=== PATIENT | male | born 1950 | race Caucasian/White ===

== ENCOUNTER → 2020-11-09 06:57 | Outpatient (CLI) | payer BC, SELFPAY ==
[2020-11-09 07:13] LABS: Basophils # 0.1 K/mm3 (0-0.2); Basophils % 0.9 % (0.1-2.0); Eosinophils # 0.2 K/mm3 (0.0-0.4); Eosinophils % 2.6 % (0.1-12.0); Hematocrit 43.7 % (42.0-52.0); Hemoglobin 14.8 g/dL (14.1-18.0); Lymphocytes % 15.3 % (10-50); Mean Corpuscular Hemoglobin 34.2 pg (27.0-31.2); Mean Corpuscular Volume 100.6 fl (80-94); Monocytes # 0.5 K/mm3 (0.1-1.0); Monocytes % 7.4 % (1.7-9.3); Neutrophils # 4.7 K/mm3 (1.8-7.8); Neutrophils % 73.8 % (37.0-80.0); Platelet Count 257 K/mm3 (142-424); Red Blood Count 4.34 M/mm3 (4.60-6.20); White Blood Count 6.4 K/mm3 (4.8-10.8)
[2020-11-09 07:52] LABS: Chloride 107 mmol/L (98-107); Sodium 141 mmol/L (136-145)
[2020-11-09 07:54] LABS: Blood Urea Nitrogen 19 mg/dl (9-20); Estimated Glomerular Filt Rate 60 ml/min (>60); GFR (African American) 73 ML/MIN (>60)
[2020-11-09 07:55] LABS: Alanine Aminotransferase 25 U/L (12-78); Albumin Level 4.4 g/dl (3.5-5.0); Albumin/Globulin Ratio 1.6 (1.1-1.8); Alkaline Phosphatase 93 U/L (38-126); Aspartate Amino Transferase 27 U/L (17-59); Bilirubin,Total 0.6 mg/dl (0.2-1.3); Carbon Dioxide 29 mmol/L (22.0-30.0); Cholesterol 205 mg/dl (140-200); Globulin 2.7 g/dL (1.3-3.2); Glucose 111 mg/dl (74-100); Total Protein,Serum 7.1 g/dl (6.3-8.2); Triglycerides 116 mg/dl (30-150); VLDL Cholesterol 23 mg/dL (0-40)
[2020-11-09 07:56] LABS: Chol/HDL Ratio 2.9 (1-3.5); HDL Cholesterol 70 mg/dl (40-60)
[2020-11-09 08:06] LABS: Direct LDL Cholesterol 106.09 mg/dL (100-129)
[2020-11-09 08:26] LABS: Thyroid Stimulating Hormone 1.72 uIU/mL (0.465-4.68)
[2020-11-09 09:19] LABS: Prostate Specific Ag Screen 2.5 ng/ml (0.0-4.0)
[2020-11-13 16:38] LABS: Vitamin B12 201 pg/mL (239-931)
[2020-11-13 16:41] LABS: Folate 8.37 ng/mL
== END ==
PROVIDERS: Visit Provider Family Medicine
DX: I10 Essential (primary) hypertension (principal); R20.2 Paresthesia of skin; Z12.5 Encounter for screening for malignant neoplasm of prostate
CPT/HCPCS: 36415; 80053; 80061; 82607; 82746; 84443; 85025; G0103

== ENCOUNTER → 2021-04-30 08:37 | Outpatient (CLI) | payer BC, SELFPAY ==
--- NOTE | 2021-04-30 08:45 | XR_ITS ---
PROCEDURE: XR HAND LT MIN 3V CLINICAL INDICATION: PAIN IN LT HAND COMPARISON: No exams were available for comparison FINDINGS: No fracture or dislocation. No lytic or blastic change. There is normal mineralization. Mild osteoarthritic changes are present involving the DIP joints and interphalangeal joint of thumb as well as the 1st metacarpophalangeal joint and the PIP joints of digits 2 through 5. Osteoarthritis also involves the 1st carpal metacarpal joint with periarticular calcific debris. A metallic foreign body is noted within the soft tissues of the palm at the level of the base of the 5th metacarpal measuring approximately 3 mm. Additional small hyperdensities are present along the proximal aspect of the distal phalanx of the thumb proximally and dorsally. These may be due to calcifications or small foreign bodies. Other findings:None. IMPRESSION: Osteoarthritic changes and foreign bodies as described above Dictated by: Jian Mcmullen MD 04/30/2021 12:43 Jian Mcmullen MD in [place] 04/30/2021 12:43
== END ==
PROVIDERS: PCP Family Medicine; Visit Provider Family Medicine
DX: M79.642 Pain in left hand (principal)
CPT/HCPCS: 73130

== ENCOUNTER → 2022-04-16 12:01 | Outpatient (CLI) | payer BC, SELFPAY ==
--- NOTE | 2022-04-16 12:10 | XR_ITS ---
FINAL REPORT CLINICAL HISTORY: PAIN IN RIGHT HIP FINDINGS: AP and frog leg views of the right hip with an AP view of the pelvis were obtained. There is no prior exam for comparison. There is no acute fracture or dislocation. There is degenerative joint disease of both hips which is worse on the right with complete loss of superior joint space on the right. Soft tissues are within normal limits. IMPRESSION: Degenerative joint disease of each hip, worse on the right. Reviewed, Interpreted and Dictated by Inez Lozano MD Transcribed by Yuni Delong Authenticated by Inez Lozano MD on 04/16/2022 01:18:21 PM [facility]
== END ==
PROVIDERS: PCP Family Medicine; Visit Provider Family Medicine
DX: M25.551 Pain in right hip (principal)
CPT/HCPCS: 73502

== ENCOUNTER 2022-09-04 09:00 | Outpatient (RCR) | payer BC, MEDICARE, SELFPAY ==
--- NOTE | 2022-07-02 13:56 | HMH.PTOPEV ---
PT Outpatient Evaluation Rehab PT Outpatient Evaluation Start: 07/02/22 10:30 Freq: Status: Active Protocol: Document 07/02/22 10:31 DESTIN (Rec: 07/02/22 10:46 DESTIN [id number]) Electronically Signed By Joey Nunez, PT 07/02/22 10:31 Outpatient Therapy Subjective History Subjective History Patient is a 71 year old male presenting to outpatient PT with reports of chronic R hip pain that has progressively gotten worse over the past 3 months. Symptoms of insidious onset, though he did experience a fall on the R hip1 year ago. Patient has most recently received an injection in the R hip that has provided some significant relief. Symptoms specific to anterior and posterior hip. Comorbidities include hx of HTN. Chief Complaint Pain,Stiff,Weakness Symptom Type Sharp Symptoms Relieved By Rest/Positioning,OTC Meds Prior Functional Limitations None Current Functional Limitations Lifting,Housework,Standing, Squatting,Walking,Stairs Symptom Description Intermittent Level of pain today (0-10) 1 Pain scale - at its best (0-10) 0 Pain scale - at its worst (0-10) 9 Hip/Knee Eval Gait Observation General Gait Pattern Observation No Deviations/Normal Assistive Device Assistive Devices None / NA Palpation Tenderness right Knee Palpation Overall Comment R hip flexor mm and upper gluteal mm 3/4 Hip Palpation Findings Tenderness MMT Hip Flexion Strength Grade 4 Good Hip Abduction Strength Grade 4 Good Hip Adduction Strength Grade 3+ Fair+ Hip Extension Strength Grade 3+ Fair+ Hip External Rotation Strength Grade 4- Good- Hip Internal Rotation Strength Grade 4 Good Knee Extension Strength Grade 5 Normal Knee Flexion Strength Grade 5 Normal ROM Hip Flexion w/Knee Flexed Passive Range 94 of Motion (degrees) Hip Flexion w/Knee Extended Passive 42 Range of Motion (degrees) Hip Abduction Passive Range of Motion ( 8 degrees) Hip Extension Passive Range of Motion ( 2 degrees) Hip External Rotation Passive Range of 8 Motion (degrees) Hip Internal Rotation Passive Range of 3 Motion (degrees) Hip ROM Limitations Soft Tissue Tightness,Bony
--- NOTE | 2022-08-07 13:35 | HMH.RHREAS ---
Rehab Reassessment Rehab OP Re-assessment Start: 08/07/22 09:08 Freq: Status: Active Protocol: Document 08/07/22 13:22 DESTIN (Rec: 08/07/22 13:34 DESTIN [id number]) E-signed By Joey Nunez, PT Rehab Re-assessment Subjective Subjective Patient reports 50% improvement since start of care. Objective Objective Notes AROM: hip flx/knee flexed 96; hip flx knee extended 48; abd 12; ext 4; Hip ER 14; hip IR 9 MMT: all hip/thigh mm 4+/5 grossly TTP: QL 2/ Neuro: WNL Assessment Progress Assessment Progressing as Expected Assessment Notes Objective improvements as noted above. Strength and mobility continue to be an issue. Patients walking time is approx 30 min before beginning to experience symptoms. Patient would benefit from continuing skilled PT services in order to address functional limitations with standing and ambulatory activities. Patient goals met STG's, LTG 9 Goals Not Met All others Revised Goals NA Plan Plan Continue with current POC. Frequency of Therapy 2x/week Duration of therapy 4 weeks Time and Billing Re-Eval Time 15 Re-Eval Billing Units 1 PHYSICIAN CERTIFICATION: I certify the specified therapy services for Maurice Simmons are required, authorized, and reviewed every 30 days.
== END 2022-09-04 09:05 | disposition home or self-care (01) ==
LOC: PT 09:00
PROVIDERS: PCP Family Medicine; Visit Provider Orthopaedic Surgery
DX: M16.11 Unilateral primary osteoarthritis, right hip (principal)
CPT/HCPCS: 97010; 97014; 97110; 97163; 97164; G0283

== ENCOUNTER → 2022-10-14 10:01 | Outpatient (CLI) | payer BC, MEDICARE, SELFPAY ==
--- NOTE | 2022-10-14 10:06 | XR_ITS ---
FINAL REPORT CLINICAL HISTORY: R CERVICAL RADICULOPATHY FINDINGS: AP and lateral Views were obtained. There is no acute fracture. There is moderate to severe degenerative change with multilevel disc space narrowing and osteophyte formation. There is mild retrolisthesis of C3 on C4 and C4 on C5. Vascular calcifications are present. IMPRESSION: Moderate to severe degenerative disc disease. Reviewed, Interpreted and Dictated by Wilton Muñoz III, MD Transcribed by Jose Rafael Moon Authenticated and [facility]
== END ==
PROVIDERS: PCP Family Medicine; Visit Provider Family Medicine
DX: M54.12 Radiculopathy, cervical region (principal)
CPT/HCPCS: 72040

== ENCOUNTER 2025-08-08 11:15 | Outpatient (CLI) | payer BC, MEDICARE, SELFPAY ==
--- OUTSIDE RECORDS SUMMARY | 2024-04-12 05:45 | XMS_ITS ---
Author Organization [facility] Address [address] [facility] [id number] Care Team Providers Care Personal Financial Advisor Name Role Phone Carlos Azul Primary Care Provider Pb Hernandez [phone] Allergies Allergen (clinical drug ingredient) Drug/Non Drug Allergy documented on EMR Reaction Allergy Type Onset Date Status lisinopril Lisinopril cough Drug Allergy Activ e Results Component Value Reference Range Notes Glucose (In-House) Reviewed date:04/14/2024 04:45:25 PM Interpretation:128 Performing Lab: Notes/Report: 128 blood glucose 128 74 - 106 mg/dL Glycohemoglobin A1c (in hous e) Reviewed date:04/14/2024 04:45:25 PM Interpretation:5.1 Performing Lab: Notes/Report: 5.1 glycohemoglobin 5.1% 5 - 6.5 % P-Vitamin B12 Reviewed date:04/14/2024 04:45:25 PM Interpretation:Normal Performing Lab: Notes/Report: Test performed by [facility] [address] [place] [address] [address], [place] [address] Edin Carey MD, Urban Gardening Specialist CLIA: [id number] Vitamin B12 774 528-0172 pg/mL P-Comprehensive Metabolic Pa bekah (CMP) Reviewed date:04/14/2024 04:45:25 PM Interpretation:gluc 104 Performing Lab: Notes/Report: Test performed by [facility] [address] [place], [place] [address] Aly Winn, Deborah C, [place] [address] Edin Carey MD, Urban Gardening Specialist CLIA: [id number] Sodium 143 135-145 mEq/L Potassium 4.3 3.5-5.3 mEq/L Chloride 107 97-108 mEq/L CO2 27 22-32 mEq/L Glucose 104 65-99 mg/dL BUN 16 8-23 mg/dL Creatinine 0.83 0.70-1.30 mg/dL Calcium 9.4 8.6-10.4 mg/dL eGFR by Creatinine 93 >59 mL/min/1.73m2 Protein 7.0 6.0-8.3 g/dL Albumin 4.6 3.5-5.3 g/dL Alkaline Phosphatase 126 40-129 IU/L ALT (SGPT) 25 <5-55 IU/L AST (SGOT) 23 <5-46 IU/L Bilirubin, Total 0.5 <0.2-1.2 mg/dL A/G Ratio 1.9 1.1-2.5 mg/dL P-Lipid Panel Reviewed date:04/14/2024 04:45:25 PM Interpretation:chol 220, no-hdl 148 Performing Lab: Notes/Report: Test performed by [facility], [address] , [address], [place] [address] Edin Carey MD, Urban Gardening Specialist CLIA: [id number] Cholesterol 220 <200 mg/dL Triglycerides 111 <150 mg/dL HDL Cholesterol 72 >39 mg/dL Cholesterol / HDL Ratio 3.06 0.00-4.99 Ratio Non-HDL Cholesterol 148 <130 mg/dL LDL Cholesterol (Calculation) 126 <130 mg/dL LDL Cholesterol Levels* Less than 100 mg/dL Optimal 100 to 129 mg/dL Near Optimal/ Above Optimal 130 to 159 mg/dL Borderline High 160 to 189 mg/dL High 190 mg/dL and above Very High * Categories as recommended by the 2004 ATPIII guidelines LDL/HDL Ratio 1.7 <3.3 Ratio LDL Cholesterol Patient History Test Date: 04/12/2024 LDL Results: 126 Units: mg/dL % Change: - P-PSA Reviewed date:04/14/2024 04:45:25 PM Interpretation:Normal Performing Lab: Notes/Report: Test performed by [facility] [address] [place] [address] , [facility], [place] [address] Edin Carey MD, Urban Gardening Specialist CLIA: [id number] PSA 3.91 <4.00 ng/mL Please note this is an ultrasensitive PSA assay with a lower limit of detection of 0.014 ng/mL. This test is performed by the [employer]ian ECLIA methodology. Values obtained with different assay methods or kits cannot be directly compared. P-TSH reflex to FT4 Reviewed date:04/14/2024 04:45:25 PM Interpretation:Normal Performing Lab: Notes/Report: Test performed by [facility] [address] [place] [address] , [place] [address] Edin Carey MD, Urban Gardening Specialist CLIA: [id number] TSH reflex to FT4 1.60 0.43-5.25 mU/L P-Microalbumin/Creatinine, R andom Urine Sample Reviewed date:04/14/2024 04:45:25 PM Interpretation:Normal Performing Lab: Notes/Report: Test performed by [facility] [address] [place] [address] [address], [place] [address] Edin Carey MD, Urban Gardening Specialist CLIA: [id number] Albumin/Creatinine Ratio, Urine 8 0-30 ug/m g Microalbumin, Urine, Random 0.4 Creatinine, Urine 49.6 REASON FOR VISIT 6 Month Check Up Medications Medication SIG (Take, Route, Frequency, Duration) Notes Start Date End Date Status amLODIPine Besylate 5 MG 1 tab(s) orally once a day; Duration: 90 days Active Losartan Potassium 100 MG 1 tablet Orall y once daily; Duration: 90 days Active Triamcinolone Acetonide 0.1 % 1 application Externally Twice a day 04/12/2024 Active Magnesium Gluconate 250 MG 1 tab(s) oral ly 2 times a day; Duration: 30 day(s) Active Vitamin B-12 1000 MCG 1 tab(s) orally on ce a day OTC 11/19/2020 Active ROLAIDS 550 MG-110 MG 2 TAB(S) ORALLY EV ALENA HOUR Active Fiber Choice 1.5 GM 2 tab(s) chewed 3 ti mes a day; Duration: 30 day(s) Active Ibuprofen 200 MG 1 tab(s) orally ever y 6 hours Active OSTEO-BIFLEX 1 P.O. BID Active Metamucil MultiHealth Fiber Active Vital Signs Weight 172.4 lbs 04/12/2024 Blood pressure systolic 142 mm Hg 04/12/20 24 Blood pressure diastolic 74 mm Hg 024 Heart Rate 75 /min 04/12/2024 Height 70 in 04/12/2024 BMI 24.73 kg/m2 04/12/2024 Encounters Encounter Location Date Provider Diagnosis [facility] [address] [place], [place] [id number] 04/12/2024 Carlos Azul Essential hypertensi on I10 ; Pure hypercholesterolemia E78.00 ; IFG (impaired fasting glucose) R73.01 ; Vitamin B 12 deficiency E53.8 ; Prostate cancer screening Z12.5 and Itch of skin L29.9 Assessments Encounter Date Diagnosis (ICD Code) Assessment Notes Treatment Notes Treatment Clinical Notes Section Notes 04/12/2024 Essential hypertensi on (ICD-10 - I10) 04/12/2024 Pure hypercholesterolemia (ICD-10 - E78.00) 04/12/2024 IFG (impaired fastin g glucose) (ICD-10 - R73.01) 04/12/2024 Vitamin B 12 deficie ncy (ICD-10 - E53.8) 04/12/2024 Prostate cancer screening (ICD-10 - Z12.5) 04/12/2024 Itch of skin (ICD-10 - L29.9) Plan Of Treatment Medication Medication Name Sig Start Date Stop Date Notes amLODIPine Besylate 5 MG 1 tab(s) orally once a day; Duration: 90 days Losartan Potassium 100 MG 1 tablet Orall y once daily; Duration: 90 days Triamcinolone Acetonide 0.1 % 1 applicat ion Externally Twice a day 04/12/2024 Next Appt Details Follow Up: 6 Months, Reason: Provider Name:Carlos Ribeiro ry, 02/06/2026 09:45:00 AM, [address], [address], [place], [place], [id number], Progress Notes * Maurice RODRÍGUEZDOB: (75 yo M)Acc No.[id number]:04/12/2024 Progress Notes Patient: Maurice JONES Provider: Mariam Azul M.D. :1950 A ge:73 Y S ex:Male Date:04/12/2024 Address:[address] [place], [place] [address] W, [id number] Subjective: * Chief Complaints: * 1 . 6 Month Check Up. * HPI: C ardiology: 73 year old male presents with c/o Blood Pressure Elevated?Pt here for 6 mo f/u on hypertension, states he is doing well and does not have any concerns. c/o Hyperlipidemia p t is fasting today. * ROS: D ERMATOLOGY: no R natalie. n o H fabby. G ASTROENTEROLOGY: no N ausea. n o V omiting. U ROLOGY: no D ifficulty urinating. n o B lood in urine. * Medical History: T raumatic injury to left hand s/p laceration with a power tool 1966, Acid Reflux, Esophageal FB x 3, Osteoarthritis of shoulders, Hypertension, Colon polyps, Dx: 2016. * Surgical History: E GD 01/22/2006, Colonoscopy 2002, 2016, EGD for esophageal FB 07/2009, EGD for esophageal FB 04/2010, Right Hip Replacement 12/23/2022. * Hospitalization/Major Diagno stic Procedure: f ood caught in throat 07/28/2009. * Family History: F ather: , [place]. M other: , Idiopathic cold agglutinin disease. 2 sister(s) - healthy. . * Social History: C URRENT TOBACCO USE S moking Status: Patient does NOT smoke. C affeine: yes, frequency:. Marital Status: . Past smoking status: no. Alcohol: Yes, Type: , Frequency: ,Years: , Determination:. * Medications: T aking Metamucil MultiHealth Fiber , Taking Ibuprofen 200 MG Tablet 1 tab(s) orally every 6 hours , Taking OSTEO-BIFLEX 1 P.O. BID , Taking ROLAIDS 550 MG-110 MG TABLET, CHEWABLE 2 TAB(S) ORALLY EVERY HOUR , Taking Fiber Choice 1.5 GM Tablet Chewable 2 tab(s) chewed 3 times a day , Taking Magnesium Gluconate 250 MG Tablet 1 tab(s) orally 2 times a day , Taking Vitamin B-12 1000 MCG Tablet 1 tab(s) orally once a day , Notes to Pharmacist: OTC, Taking amLODIPine Besylate 5 MG Tablet 1 tab(s) orally once a day , Taking Losartan Potassium 100 MG Tablet 1 tablet Orally once daily , Medication List reviewed and reconciled with the patient * Allergies: L isinopril: cough - Side Effects. Objective: * Vitals: W t:172.4, Temp:97.8, BP:142/74, HR:75, Nurse:dwayne, Ht: 70, BMI:24.73. * Examination: C ardiology: General Appearance: p leasant, NAD. H EENT: u nremarkable. H eart sounds: R RR, normal S1, S2. L ungs: c lear, no rales or wheezes.?Extremities: n o leg edema. G eneral Examination: Skin: s ome rough, dry skin on the top of the left shoulder. Assessment: * Assessment: 1. E ssential hypertension - I10 (Primary) 2 . P ure hypercholesterolemia - E78.00 3 . I FG (impaired fasting glucose) - R73.01 4 . V itamin B 12 deficiency - E53.8 5 . P rostate cancer screening - Z12.5 ?6. I tch of skin - L29.9 Plan: * Treatment: Value Reference Range A /G Ratio 1.9 1.1-2.5 - mg/dL * A lbumin 4.6 3.5-5.3 - g/dL * A lkaline Phosphatase 126 40-129 - IU/L * A LT (SGPT) 25 <5-55 - IU/L * A ST (SGOT) 23 <5-46 - IU/L * B ilirubin, Total 0.5 <0.2-1.2 - mg/dL * B UN 16 8-23 - mg/dL * C alcium 9.4 8.6-10.4 - mg/dL * C hloride 107 97-108 - mEq/L * C O2 27 22-32 - mEq/L * C reatinine 0.83 0.70-1.30 - mg/dL * G lucose 104 H 65-99 - mg/dL * P otassium 4.3 3.5-5.3 - mEq/L * S odium 143 135-145 - mEq/L * P rotein 7.0 6.0-8.3 - g/dL * e GFR by Creatinine 93 >59 - mL/min/1.73m2 * Ame [place] 04/14/2024 4:45: 17 PM >See phone encounter ?LAB: P-Microalbumin/Creatinine, Random Urine Sample (Collection Date & Time - 04/12/2024 09:15 AM)?Normal* Value Reference Range A lbumin/Creatinine Ratio, Urine 8 0-30 - ug /mg * C reatinine, Urine 49.6 - mg/dL * M icroalbumin, Urine, Random 0.4 - mg/dL * Ame [place] 04/14/2024 4:45: 17 PM >See phone encounter 2.?Pure hypercholesterolemia?LAB: P-Comprehensive Metabolic Panel (CMP) (Collection Date & Time - 04/12/2024 09:15 AM)?gluc 104* Value Reference Range A /G Ratio 1.9 1.1-2.5 - mg/dL * A lbumin 4.6 3.5-5.3 - g/dL * A lkaline Phosphatase 126 40-129 - IU/L * A LT (SGPT) 25 <5-55 - IU/L * A ST (SGOT) 23 <5-46 - IU/L * B ilirubin, Total 0.5 <0.2-1.2 - mg/dL * B UN 16 8-23 - mg/dL * C alcium 9.4 8.6-10.4 - mg/dL * C hloride 107 97-108 - mEq/L * C O2 27 22-32 - mEq/L * C reatinine 0.83 0.70-1.30 - mg/dL * G lucose 104 H 65-99 - mg/dL * P otassium 4.3 3.5-5.3 - mEq/L * S odium 143 135-145 - mEq/L * P rotein 7.0 6.0-8.3 - g/dL * e GFR by Creatinine 93 >59 - mL/min/1.73m2 * Ame [place] 04/14/2024 4:45: 17 PM >See phone encounter ?LAB: P-Lipid Panel (Collection Date & Time - 04/12/2024 09:15 AM)?chol 220, no-hdl 148* Value Reference Range C holesterol / HDL Ratio 3.06 0.00-4.99 - Ratio * C holesterol 220 H <200 - mg/dL * H DL Cholesterol 72 >39 - mg/dL * L DL Cholesterol (Calculation) 126 <130 - mg/d L * L DL/HDL Ratio 1.7 <3.3 - Ratio * N on-HDL Cholesterol 148 H <130 - mg/dL * T riglycerides 111 <150 - mg/dL * Ame [place] 04/14/2024 4:45: 17 PM >See phone encounter ?LAB: P-TSH reflex to FT4 (Collection Date & Time - 04/12/2024 09:15 AM)? Normal* Value Reference Range T SH reflex to FT4 1.60 0.43-5.25 - mU/L * Ame [place] 04/14/2024 4:45: 17 PM >See phone encounter 3.?IFG (impaired fasting glucose)?LAB: Glucose (In-House) (Collection Date & Time - 04/12/2024)?128* Value Reference Range b lood glucose 128 74 - 106 mg/dL * Hawa Todd 04/12/2024 1 0:28:12 AM > [facility] [place] 04/14/2024 4:45:17 PM >See phone encounter ?LAB: Glycohemoglobin A1c (in house) (Collection Date & Time - 04/12/2024)? 5.1* Value Reference Range g lycohemoglobin 5.1% 5 - 6.5 % * Hawa Todd 04/12/2024 1 0:31:43 AM > Ame [place] 04/14/2024 4:45:17 PM >See phone encounter 4.?Vitamin B 12 deficiency?LAB: P-Vitamin B12 (Collection Date & Time - 04/12/2024 09:15 AM)?Normal* Value Reference Range V itamin B12 526 481-2949 - pg/mL * [place] 04/14/2024 4:45: 17 PM >See phone encounter 5.?Prostate cancer screening?LAB: P-PSA (Collection Date & Time - 04/12/2024 09:15 AM)?Normal* Value Reference Range P SA 3.91 <4.00 - ng/mL * [place] 04/14/2024 4:45: 17 PM >See phone encounter 6.?Itch of skin? Start Triamcinolone Acetonide Cream, 0.1 %, 1 application, Externally, Twice a day, 30 grams, Refills 1.?? * Procedure Codes: 8 2950 GLUCOSE TEST, 16237 GLYCATED HEMOGLOBIN TEST, Modifiers: QW * Follow Up: 6 Months * Images: Billing Information: * Visit Code: 39458 Office Visit, Est Pt., Level 4. * Procedure Codes: 02267 GLU[address]SE TEST. [address] GLYCATED HEMOGLOBIN TEST. Modifiers: QW * Electronic signature of Yani Azul MD on 08/08/2025 at 11:19 AM EDT Sign off status: Pending * Provider: Mariam Azul M.D. Date: 0 04/12/2024 Generated for Ba farias/Kamari/Alyson on: 0 08/08/2025 11:19 AM EDT History and Physical Notes * HPI (History of Present Illness) Category Sub-Category Detail Notes Category Not es Cardiology Blood Pressure Elevated Pt here for 6 mo f/u on hypertension, states he is doing well and does not have any concerns Hyperlipidemia pt is fasting today Examination Category Sub-Category Detail Notes Category Not es General Examination Skin: some rough, dry skin on the top of the left shoulder Cardiology Lungs: clear, no rales or wheezes HEENT: unremarkable Heart sounds: RRR, normal S1, S2 Extremities: no leg edema General Appearance: pleasant, NAD
--- OUTSIDE RECORDS SUMMARY | 2024-08-24 05:45 | XMS_ITS ---
Author Organization [facility] Address [address] [facility] [address] [place] [id number] Care Team Providers Care Industrial Tractor Driver Name Role Phone Carlos Azul Primary Care Provider [phone] Pb Hernandez [phone] REASON FOR VISIT flu shot Medications Medication SIG (Take, Route, Frequency, Duration) Notes Start Date End Date Status Vitamin B-12 1000 MCG 1 tab(s) orally on ce a day OTC 11/19/2020 Active Magnesium Gluconate 250 MG 1 tab(s) oral ly 2 times a day; Duration: 30 day(s) Active Losartan Potassium 100 MG 1 tablet Orall y once daily; Duration: 90 days Active amLODIPine Besylate 5 MG 1 tab(s) orally once a day; Duration: 90 days Active Triamcinolone Acetonide 0.1 % 1 application Externally Twice a day 04/12/2024 Active OSTEO-BIFLEX 1 P.O. BID Active Ibuprofen 200 MG 1 tab(s) orally ever y 6 hours Active Fiber Choice 1.5 GM 2 tab(s) chewed 3 ti mes a day; Duration: 30 day(s) Active ROLAIDS 550 MG-110 MG 2 TAB(S) ORALLY EV ALENA HOUR Active Metamucil [facility] Fiber Active Immunizations Vaccine Route Administration Date Status Comme nts Fluzone High Dose (65yr and older) IM Intramuscular 08/24/2024 Administered Encounters Encounter Location Date Provider Diagnosis [facility] [address] [place] [id number] 08/24/2024 Carlos Azul Encounter for immunization Z23 Assessments Encounter Date Diagnosis (ICD Code) Assessment Notes Treatment Notes Treatment Clinical Notes Section Notes 08/24/2024 Encounter for immunization (ICD-10 - Z23) Plan Of Treatment Next Appt Details Provider Name:Carlos Ribeiro ry, 02/06/2026 09:45:00 AM, [address], [address], [place], [place], [id number], Progress Notes * Maurice RODRÍGUEZDOB: (75 yo M)Acc No.[id number]:08/24/2024 Patient: Maurice JONES Provider: Mariam Azul M.D. :1950 A ge:74 Y S ex:Male Date:08/24/2024 Address:[address] [place], [place] [address] W, [facility], [id number] Subjective: * Chief Complaints: * 1 . Flu shot. * Medical History: * Medications: T aking Metamucil MultiHealth Fiber [...] Tablet 1 tablet Orally once daily , Taking Triamcinolone Acetonide 0.1 % Cream 1 application Externally Twice a day , Medication List reviewed and reconciled with the patient Objective: * Vitals: Assessment: * Assessment: 1. E ncounter for immunization - Z23 (Primary) Plan: * Treatment: * Immunizations: Fluzone High Dose (65yr and older) : 0.5 mL (Route: Intramuscular) given by Maria De Jesus Gomes on Left Deltoid (Encounter for immunization) * Images: Billing Information: * Visit Code: * Procedure Codes: * Electronic signature of Yani Azul MD on 08/08/2025 at 11:19 AM EDT Sign off status: Pending * Provider: Mariam Azul M.D. Date: 1 Generated for Ba farias/Kamari/Rainaitting on: 0 08/08/2025 11:19 AM EDT
--- OUTSIDE RECORDS SUMMARY | 2024-10-13 06:00 | XMS_ITS ---
[facility] Address [address] [place] [id number] Care Team Providers Care Panel Instrument Repairer Name Role Phone Latha Carlos Primary Care Provider Pb Hernandez [phone] Allergies Allergen (clinical drug ingredient) Drug/Non Drug Allergy documented on EMR Reaction Allergy Type Onset Date Status lisinopril Lisinopril cough Drug Allergy Activ e REASON FOR VISIT 6 month check Medications Medication SIG (Take, Route, Frequency, Duration) Notes Start Date End Date Status Vitamin B-12 1000 MCG 1 tab(s) orally on ce a day OTC 11/19/2020 Active Triamcinolone Acetonide 0.1 % 1 application Externally Twice a day 04/12/2024 Active ROLAIDS 550 MG-110 MG 2 TAB(S) ORALLY EV ALENA HOUR Active Fiber Choice 1.5 GM 2 tab(s) chewed 3 ti mes a day; Duration: 30 day(s) Active Magnesium Gluconate 250 MG 1 tab(s) oral ly 2 times a day; Duration: 30 day(s) Active Losartan Potassium 100 MG 1 tablet Orall y once daily; Duration: 90 days Active Metamucil [facility] Fiber Active Ibuprofen 200 MG 1 tab(s) orally ever y 6 hours Active OSTEO-BIFLEX 1 P.O. BID Active amLODIPine Besylate 5 MG 1 tab(s) orally once a day; Duration: 90 days Active Vital Signs Weight 175.4 lbs 10/13/2024 Blood pressure systolic 140 mm Hg 10/13/20 24 Blood pressure diastolic 86 mm Hg 024 Heart Rate 76 /min 10/13/2024 Height 70 in 10/13/2024 BMI 25.16 kg/m2 10/13/2024 Encounters Encounter Location Date Provider Diagnosis [facility] [address] [facility] [address] [place] [id number] 10/13/2024 Carlos Azul Essential hypertensi on I10 and Pure hypercholesterolemia E78.00 Assessments Encounter Date Diagnosis (ICD Code) Assessment Notes Treatment Notes Treatment Clinical Notes Section Notes 10/13/2024 Essential hypertensi on (ICD-10 - I10) 10/13/2024 Pure hypercholesterolemia (ICD-10 - E78.00) Diet reviewed with patient Plan Of Treatment Medication Medication Name Sig Start Date Stop Date Notes Losartan Potassium 100 MG 1 tablet Orall y once daily; Duration: 90 days amLODIPine Besylate 5 MG 1 tab(s) orally once a day; Duration: 90 days Treatment Notes Assessment Notes Pure hypercholesterolemia Diet reviewed with patient Next Appt Details Follow Up: 6 Months fasting, Reason: Provider Name:Carlos castrejon, 02/06/2026 09:45:00 AM, [address] [facility], [address], [place], [id number], Progress Notes * Maurice RODRÍGUEZDOB: (75 yo M)Acc No.[id number]:10/13/2024 Progress Notes Patient: Maurice JONES Provider: Mariam Azul M.D. :1950 A ge:74 Y S ex:Male Date:10/13/2024 Address:[address] [place] [address], [id number] Subjective: * Chief Complaints: * 1 . 6 month check. * HPI: C ardiology: 74 year old male presents with c/o Blood Pressure Elevated P t presents today for a 6 month check up. Pt is not fasting today. Pt needs refills today. Pt sts that he has no new concerns or complaints at this time. * ROS: D ERMATOLOGY: no R natalie. [...] 07/28/2009. * Family History: F ather: , [place]. M other: , Idiopathic cold agglutinin disease. [...] tab(s) orally once a day , Taking Triamcinolone Acetonide 0.1 % Cream 1 application Externally Twice a day , Taking Losartan Potassium 100 MG Tablet 1 tablet Orally once daily , Medication List reviewed and reconciled with the patient * Allergies: L isinopril: cough - Side Effects. Objective: * Vitals: W t:175.4, Temp:98.5, BP:140/86, HR:76, Nurse:DARVIN, Ht: 70, BMI:25.16. * Examination: C ardiology: General Appearance: p leasant, NAD. H eart sounds: R RR, normal S1, S2. L ungs: c lear, no rales or wheezes. P eripheral pulses: 2 plus bilateral. Assessment: * Assessment: 1. E ssential hypertension - I10 (Primary) 2 . P ure hypercholesterolemia - E78.00 Plan: * Treatment: 2. P ure hypercholesterolemia Notes: Diet reviewed with patient * Procedure Codes: G 2211 Complex e/m visit add on * Follow Up: 6 Months fasting * Images: Billing Information: * Visit Code: 66943 Office Visit, Est Pt., Level 3. * Procedure Codes: G2211 Complex e/m visit add on. * Electronic signature of Yani Azul MD on 08/08/2025 at 11:19 AM EDT Sign off status: Pending * Provider: Mariam Azul M.D. Date: 1 12/13/2023 Generated for Ba farias/Kamari/Houstonransmitting on: 0 08/08/2025 11:19 AM EDT History and Physical Notes * HPI (History of Present Illness) Category Sub-Category Detail Notes Category Not es Cardiology Blood Pressure Elevated Pt prese nts today for a 6 month check up. Pt is not fasting today. Pt needs refills today. Pt sts that he has no new concerns or complaints at this time Examination Category Sub-Category Detail Notes Category Not es Cardiology Lungs: clear, no rales or wheezes Heart sounds: RRR, normal S1, S2 Peripheral pulses: 2 plus bilateral General Appearance: pleasant, NAD
--- OUTSIDE RECORDS SUMMARY | 2025-02-07 05:15 | XMS_ITS ---
Author Organization [facility] Address [address] [facility] [address] [place] [address] [place] [id number] Care Team Providers Care Cattle Dehorner Name Role Phone [place] Carlos Primary Care Provider [phone] Pb Hernandez [phone] Allergies Allergen (clinical drug ingredient) Drug/Non Drug Allergy documented on EMR Reaction Allergy Type Onset Date Status lisinopril Lisinopril cough Drug Allergy Activ e Results Component Value Reference Range Notes Glucose (In-House) Reviewed date:02/09/2025 02:09:40 PM Interpretation:119 Normal Performing Lab: Notes/Report: 119 Normal blood glucose 119 74 - 106 mg/dL Glycohemoglobin A1c (in hous e) Reviewed date:02/09/2025 02:09:40 PM Interpretation:5.2 Normal Performing Lab: Notes/Report: 5.2 Normal glycohemoglobin 5.2% 5 - 6.5 % P-Comprehensive Metabolic Pa bekah (CMP) Reviewed date:02/09/2025 02:09:40 PM Interpretation:Normal Performing Lab: Notes/Report: Test performed by [facility], [facility] [address] [place] [address] , [address], [place] [address] Edin Carey MD, Territory Manager CLIA: [id number] Sodium 145 135-145 mmol/L Potassium 4.6 3.5-5.3 mmol/L Chloride 108 97-108 mmol/L CO2 25 22-32 mmol/L Glucose 97 65-99 mg/dL BUN 17 8-23 mg/dL Creatinine 0.82 0.70-1.30 mg/dL Calcium 9.2 8.6-10.4 mg/dL eGFR by Creatinine 92 >59 mL/min/1.73m2 Protein 6.5 6.0-8.3 g/dL Albumin 4.4 3.5-5.3 g/dL Alkaline Phosphatase 115 40-129 IU/L ALT (SGPT) 22 <5-55 IU/L AST (SGOT) 18 <5-46 IU/L Bilirubin, Total 0.4 <0.2-1.2 mg/dL A/G Ratio 2.1 1.1-2.5 P-Lipid Panel Reviewed date:02/09/2025 02:09:40 PM Interpretation:Normal Performing Lab: Notes/Report: Test performed by [facility], [address] , [place] [address] Edin Carey MD, Territory Manager CLIA: [id number] Cholesterol 191 <200 mg/dL Triglycerides 72 <150 mg/dL HDL Cholesterol 63 >39 mg/dL Cholesterol / HDL Ratio 3.03 0.00-4.99 Ratio Non-HDL Cholesterol 128 <130 mg/dL LDL Cholesterol (Calculation) 114 <130 mg/dL LDL Cholesterol Levels* Less than 100 mg/dL Optimal 100 to 129 mg/dL Near Optimal/ Above Optimal 130 to 159 mg/dL Borderline High 160 to 189 mg/dL High 190 mg/dL and above Very High * Categories as recommended by the 2004 ATPIII guidelines LDL/HDL Ratio 1.8 <3.3 Ratio LDL Cholesterol Patient History Test Date: 04/12/2024 LDL Results: 126 Units: mg/dL % Change: - Test Date: 02/07/2025 LDL Results: 114 Units: mg/dL % Change: -9% P-TSH reflex to FT4 Reviewed date:02/09/2025 02:09:40 PM Interpretation:Normal Performing Lab: Notes/Report: Test performed by [facility] [address] [place], [place] [address] [place] , [place] [address] Edin Carey MD, Territory Manager CLIA: [id number] TSH reflex to FT4 1.54 0.43-5.25 mU/L P-Microalbumin/Creatinine, R andom Urine Sample Reviewed date:02/09/2025 02:09:40 PM Interpretation:Normal Performing Lab: Notes/Report: Test performed by [facility] [address] [place] [address] , [place] [address] Edin Carey MD, Territory Manager CLIA: [id number] Albumin/Creatinine Ratio, Urine 32 0-30 ug/m g Microalbumin, Urine, Random 5.2 Creatinine, Urine 162.2 REASON FOR VISIT 6 months Medications Medication SIG (Take, Route, Frequency, Duration) Notes Start Date End Date Status Vitamin B-12 1000 MCG 1 tab(s) orally once a day OTC 1 01/20/2020 Active Magnesium Gluconate 250 MG 1 tab(s) oral ly 2 times a day; Duration: 30 day(s) Active OSTEO-BIFLEX 1 P.O. BID Active Ibuprofen 200 MG 1 tab(s) orally ever y 6 hours Active amLODIPine Besylate 5 MG 1 tab(s) orally once a day; Duration: 90 days Active Cetirizine HCl 10 MG 1 tablet Orally Once a day Active Losartan Potassium 100 MG 1 tablet Orall y once daily; Duration: 90 days Active Vital Signs Weight 174 lbs 02/07/2025 Blood pressure systolic 140 mm Hg 02/08/20 25 Blood pressure diastolic 82 mm Hg 025 Heart Rate 88 /min 02/07/2025 Height 70 in 02/07/2025 BMI 24.96 kg/m2 02/07/2025 Encounters Encounter Location Date Provider Diagnosis Cheryl [address] [facility] 36 [facility] [address] [place] [id number] 02/07/2025 Carlos Azul HTN (hypertension) I 10 ; IFG (impaired fasting glucose) R73.01 ; Pure hypercholesterolemia E78.00 and Polyarthralgia M25.50 Assessments Encounter Date Diagnosis (ICD Code) Assessment Notes Treatment Notes Treatment Clinical Notes Section Notes 02/07/2025 HTN (hypertension) (ICD-10 - I10) 02/07/2025 IFG (impaired fastin g glucose) (ICD-10 - R73.01) 02/07/2025 Pure hypercholesterolemia (ICD-10 - E78.00) 02/07/2025 Polyarthralgia (ICD- 10 - M25.50) Patient to follow up with Ortho for further treatment Plan Of Treatment Medication Medication Name Sig Start Date Stop Date Notes amLODIPine Besylate 5 MG 1 tab(s) orally once a day; Duration: 90 days Losartan Potassium 100 MG 1 tablet Orall y once daily; Duration: 90 days Treatment Notes Assessment Notes Polyarthralgia Patient to follow up with Ortho for further treatment Next Appt Details Follow Up: 6 Months, Reason: Provider Name:Carlos castrejon, 02/06/2026 09:45:00 AM, [address] [facility] 36 [facility], [address], [place], [id number], Progress Notes * Maurice RODRÍGUEZDOB: (75 yo M)Acc No.[id number]:02/07/2025 Progress Notes Patient: Maurice JONES Provider: Mariam Azul M.D. :1950 A ge:74 Y S ex:Male Date:02/07/2025 Address:[address] [place] [address], [id number] Subjective: * Chief Complaints: * 1 . 6 months. * HPI: C ardiology: 74 year old male presents with c/o Blood Pressure Elevated P t here for 6 mo f/u on hypertension, states he is doing well and does not have any concerns. c/o Hyperlipidemia P t is fasting today. * ROS: D [...] 07/28/2009. * Family History: F ather: , [place]. M other: , Idiopathic cold agglutinin disease. 2 sister(s) - healthy. . * Social History: C URRENT TOBACCO USE S moking Status: Patient does NOT smoke. C affeine: yes, frequency:. Marital Status: . Past smoking status: no. Alcohol: Yes, Type: , Frequency: ,Years: , Determination:. * Medications: T aking Cetirizine HCl 10 MG Tablet 1 tablet Orally Once a day , Taking Ibuprofen 200 MG Tablet 1 tab(s) orally every 6 hours , Taking OSTEO-BIFLEX 1 P.O. BID , Taking Magnesium Gluconate 250 MG Tablet 1 tab(s) orally 2 times a day , Taking Vitamin B-12 1000 MCG Tablet 1 tab(s) orally once a day , Notes to Pharmacist: OTC, Taking Losartan Potassium 100 MG Tablet 1 tablet Orally once daily , Taking amLODIPine Besylate 5 MG Tablet 1 tab(s) orally once a day , Discontinued Metamucil [facility] Fiber , Discontinued ROLAIDS 550 MG-110 MG TABLET, CHEWABLE 2 TAB(S) ORALLY EVERY HOUR , Discontinued Fiber Choice 1.5 GM Tablet Chewable 2 tab(s) chewed 3 times a day , Discontinued Triamcinolone Acetonide 0.1 % Cream 1 application Externally Twice a day , Medication List reviewed and reconciled with the patient * Allergies: L isinopril: cough - Side Effects. Objective: * Vitals: W t: 174, Temp: 98.1, BP: 140/82, HR: 88, Nurse: dwayne, Ht: 70, BMI:24.96. * Examination: C ardiology: General Appearance: p leasant, NAD. H eart sounds: R RR, normal S1, S2. L ungs: c lear, no rales or wheezes. P eripheral pulses: 2 plus bilateral. Assessment: * Assessment: 1. H [place] (hypertension) - I10 (Primary) 2 . I FG (impaired fasting glucose) - R73.01 3 . P ure hypercholesterolemia - E78.00 4 . P olyarthralgia - M25.50 Plan: * Treatment: Value Reference Range A /G Ratio 2.1 1.1-2.5 - * A lbumin 4.4 3.5-5.3 - g/dL * A lkaline Phosphatase 115 40-129 - IU/L * A LT (SGPT) 22 <5-55 - IU/L * A ST (SGOT) 18 <5-46 - IU/L * B ilirubin, Total 0.4 <0.2-1.2 - mg/dL * B UN 17 8-23 - mg/dL * C alcium 9.2 8.6-10.4 - mg/dL * C hloride 108 97-108 - mmol/L * C O2 25 22-32 - mmol/L * C reatinine 0.82 0.70-1.30 - mg/dL * G lucose 97 65-99 - mg/dL * P otassium 4.6 3.5-5.3 - mmol/L * S odium 145 135-145 - mmol/L * P rotein 6.5 6.0-8.3 - g/dL * e GFR by Creatinine 92 >59 - mL/min/1.73m2 * Maria De Jesus Gomes 02/09/2025 2:09:22 PM > Pt informed ?LAB: P-Microalbumin/Creatinine, Random Urine Sample (Collection Date & Time - 02/07/2025 09:06 AM)?Normal* Value Reference Range A lbumin/Creatinine Ratio, Urine 32 H 0-30 - ug /mg * C reatinine, Urine 162.2 - mg/dL * M icroalbumin, Urine, Random 5.2 - mg/dL * Maria De Jesus Gomes 02/09/2025 2:09:22 PM > Pt informed 2.?IFG (impaired fasting glucose)?LAB: Glucose (In-House) (Collection Date & Time - 02/07/2025)?119 Normal* Value Reference Range b lood glucose 119 74 - 106 mg/dL * Maria De Jesus Gomes 02/07/2025 11:20:0 9 AM > Maria De Jesus Gomes 02/09/2025 2:09:22 PM > Pt informed ?LAB: Glycohemoglobin A1c (in house) (Collection Date & Time - 02/07/2025)? 5.2 Normal* Value Reference Range g lycohemoglobin 5.2% 5 - 6.5 % * Maria De Jesus Gomes 02/07/2025 11:22:0 0 AM > Maria De Jesus Gomes 02/09/2025 2:09:22 PM > Pt informed 3.?Pure hypercholesterolemia?LAB: P-Comprehensive Metabolic Panel (CMP) (Collection Date & Time - 02/07/2025 09:06 AM)?Normal* Value Reference Range A /G Ratio 2.1 1.1-2.5 - * A lbumin 4.4 3.5-5.3 - g/dL * A lkaline Phosphatase 115 40-129 - IU/L * A LT (SGPT) 22 <5-55 - IU/L * A ST (SGOT) 18 <5-46 - IU/L * B ilirubin, Total 0.4 <0.2-1.2 - mg/dL * B UN 17 8-23 - mg/dL * C alcium 9.2 8.6-10.4 - mg/dL * C hloride 108 97-108 - mmol/L * C O2 25 22-32 - mmol/L * C reatinine 0.82 0.70-1.30 - mg/dL * G lucose 97 65-99 - mg/dL * P otassium 4.6 3.5-5.3 - mmol/L * S odium 145 135-145 - mmol/L * P rotein 6.5 6.0-8.3 - g/dL * e GFR by Creatinine 92 >59 - mL/min/1.73m2 * Maria De Jesus Gomes 02/09/2025 2:09:22 PM > Pt informed ?LAB: P-Lipid Panel (Collection Date & Time - 02/07/2025 09:06 AM)?Normal* Value Reference Range C holesterol / HDL Ratio 3.03 0.00-4.99 - Ratio * C holesterol 191 <200 - mg/dL * H DL Cholesterol 63 >39 - mg/dL * L DL Cholesterol (Calculation) 114 <130 - mg/d L * L DL/HDL Ratio 1.8 <3.3 - Ratio * N on-HDL Cholesterol 128 <130 - mg/dL * T riglycerides 72 <150 - mg/dL * Maria De Jesus Gomes 02/09/2025 2:09:22 PM > Pt informed ?LAB: P-TSH reflex to FT4 (Collection Date & Time - 02/07/2025 09:06 AM)? Normal* Value Reference Range T SH reflex to FT4 1.54 0.43-5.25 - mU/L * Maria De Jesus Gomes 02/09/2025 2:09:22 PM > Pt informed 4.?Polyarthralgia? Notes: Patient to follow up with Ortho for further treatment?? * Procedure Codes: 8 2950 GLUCOSE TEST, 98029 GLYCATED HEMOGLOBIN TEST, Modifiers: QW , 3044F HG A1C LEVEL LT 7.0%, 3077F SYST BP = 140 MM HG6 IT, 3079F DIAST BP 80-89 MM HG * Follow Up: 6 Months * Images: Billing Information: * Visit Code: 32779 Office Visit, Est Pt., Level 4. * Procedure Codes: 95282 GLUCOSE TEST. 75582 GLYCATED HEMOGLOBIN TEST. Modifiers: QW 3044F HG A1C LEVEL LT 7.0%. 3077F SYST BP = 140 MM HG6 IT. 3079F DIAST BP 80-89 MM HG. * Electronic signature of Yani Azul MD on 08/08/2025 at 11:19 AM EDT Sign off status: Pending * Provider: Mariam Azul M.D. Date: 0 02/07/2025 Generated for Ba farias/Kamari/eTransmitting on: 0 08/08/2025 11:19 AM EDT History and Physical Notes * HPI (History of Present Illness) Category Sub-Category Detail Notes Category Not es Cardiology Blood Pressure Elevated Pt here for 6 mo f/u on hypertension, states he is doing well and does not have any concerns Hyperlipidemia Pt is fasting today Examination Category Sub-Category Detail Notes Category Not es Cardiology Lungs: clear, no rales or wheezes Heart sounds: RRR, normal S1, S2 Peripheral pulses: 2 plus bilateral General Appearance: pleasant, NAD
--- NOTE | 2025-08-08 11:20 | XR_ITS ---
FINAL REPORT CLINICAL HISTORY: PAIN IN LEFT KNEE / pt states no prev injury to knee FINDINGS: LEFT KNEE 3 views of the left knee were obtained. There is no acute fracture or dislocation. Visualized joint spaces are normally aligned. Soft tissues are unremarkable. IMPRESSION: No acute bony abnormality. Reviewed, Interpreted and Dictated by Andrea Ibarra MD Transcribed by Krystle Erazo Authenticated and [facility]
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
== END 2025-08-08 23:59 | disposition home or self-care (01) ==
LOC: RAD 11:17
PROVIDERS: PCP Family Medicine; Visit Provider Family Medicine
DX: M25.562 Pain in left knee (principal)
CPT/HCPCS: 73562

== ENCOUNTER 2025-11-07 06:01 | Day surgery (SDC) | payer BC, SELFPAY ==
--- NOTE | 2025-11-02 06:38 | EXP.HP ---
History of Present Illness *Admission Date: 11/07/25 *History of present illness: Mr. Simmons is a 75-year-old gentleman who is here for screening/surveillance colonoscopy secondary to a personal history of adenomatous colon polyps. The patient did have initial screening colonoscopy with me in April 2017 and had 3 colon polyps (tubular adenomas x 3) removed. He reports no abdominal pain, weight loss, change in his bowel habits or rectal bleeding. He reports no family history of colon cancer. The examination is deemed medically necessary for screening/surveillance colonoscopy. The patient has been seen, interviewed and examined prior to the procedure by both myself and the anesthesia provider. [facility] Disclaimer: The information contained in this section may have been updated after the patient was seen, as this information can be updated by other users. Medical History Hypertension Surgical History History of hip replacement, total Family History Other No significant family history Social History (Updated 11/07/25 @ 07:40 by Tiara Ugarte CRNA) Smoking Status: Never smoker alcohol intake: current substance use type: unknown current occupational status: employed Travel in the last 8 weeks?: None Have you lived/traveled outside US in past 30 days?: No Contact w/someone who lives/traveled outside US past 30 days?: No Exposure to someone with infectious disease in past 14 days?: No Do you have a fever (greater than 100.4 F or 38 C)?: No Have you tested positive for COVID-19?: No Exposed to someone with COVID-19 in past 14 days?: No Do you have a sore throat?: No Do you have a cough?: No Do you have any weakness?: No Are you experiencing any nausea/vomitting?: No Do you have any diarrhea?: No Are you experiencing any unusual bleeding?: No Do you have any muscle aches/pain?: No Do you have any abdominal pain?: No Are you experiencing loss of taste or smell?: No Other Medical History Have you received the Pneumonia Vaccine: No Review of Systems Review of Systems Review of systems (narrative): Negative *Cardiovascular Comments: Negative *Gastrointestinal Comments: Negative *Genitourinary Comments: Negative *Musculoskeletal Comments: Negative *Neurologic Comments: Negative Meds Home Medications and Allergies Home Medications ?Medication ?Instructions ?Recorded ?Confirmed ?Type amlodipine 5 mg tablet 5 mg PO DAILY 06/26/22 11/07/25 History losartan 100 1 tab PO DAILY 06/26/22 11/07/25 History mg-hydrochlorothiazide 12.5 mg tablet magnesium 250 mg tablet 250 mg PO DAILY 06/26/22 11/07/25 History vitamin B complex (B 1 tab PO DAILY 06/26/22 11/07/25 History Complex-Vitamin B12 tablet) sodium,potassium,mag sulfates 17.5 See Rx Instructions PO .COMPLEX 10/25/25 11/07/25 Rx gram-3.13 gram-1.6 gram oral soln #354 mL (Suprep Bowel Prep Kit) cetirizine 5 mg tablet (Allergy 5 mg PO BID 11/04/25 11/07/25 History Relief (cetirizine)) ibuprofen 200 mg tablet 200 mg PO Q6H PRN . 11/04/25 11/07/25 History New Prescriptions to Start Prescriptions: Allergies Allergy/AdvReac Type Severity Reaction Status Date / Time No Known Drug Allergies Allergy Unknown Other Verified 11/07/25 07:16 (NKDA) Exam *Routine HEENT Exam Head: Present normocephalic Eye: Present EOMI and PERRL ENT: Present mucous membranes moist *Routine Neck Exam Neck: Present supple *Routine Respiratory Exam Respiratory: Present CTA bilaterally *Routine Cardiovascular Exam Cardiovascular: Present RRR *Routine Abdominal Exam Abdominal: Present soft and normoactive bowel sounds; Absent tenderness *Routine Rectal Exam Rectal:: deferred *Routine Genitalia Exam Genitalia:: deferred *Routine Extremities Exam Extremities: Absent cyanosis, clubbing or edema *Routine Skin Exam Skin: Present warm; Absent rash *Routine Neurological Exam Neurological: Present alert and oriented X3 Assessment and Plan *Assessment and plan (1) Personal history of adenomatous and serrated colon polyps: Status: Acute Category: Medical Code(s): Z86.0101 - Personal history of adenomatous and serrated colon polyps (2) Screening for colon cancer: Status: Acute Category: Medical Code(s): Z12.11 - Encounter for screening for malignant neoplasm of colon Plan A/P: 1. Personal history of adenomatous colon polyps is the preprocedural diagnosis. The patient will be anesthetized/sedated using MAC sedation. The patient has been seen and examined. Cardiac and lung assessment prior to the examination is stable. Proceed with planned screening/surveillance colonoscopy.
[2025-11-04 13:26] VITALS: BMI 23.6
--- NOTE | 2025-11-07 06:40 | P.PCN_ITS ---
[facility] Procedure Note Date: 11/07/25 Time: 08:14 Procedure Note:: Colonoscopy Procedure Report: Colonoscopy with cold snare polypectomy Endoscopist: Micha Perez II, MD Referring physician: Carlos Azul MD Date of Procedure: November 07, 2025 Equipment: Olympus [id number] adult colonoscope Sedation: MAC sedation Indication: Mr. Simmons is a 75-year-old gentleman who is here for screening/surveillance colonoscopy secondary to a personal history of adenomatous colon polyps. The patient did have initial screening colonoscopy with ri in April 2017 and had 3 colon polyps (tubular adenomas x 3) removed. He reports no abdominal pain, weight loss, change in his bowel habits or rectal bleeding. He reports no family history of colon cancer. The examination is deemed medically necessary for screening/surveillance colonoscopy. Procedure: Prior to the procedure, a history and physical exam was performed, and patient's medications and allergies were reviewed. The risks, benefits and alternatives of the sedation and procedure were discussed with the patient. All questions were answered and informed consent was obtained. The patient was brought to the procedure room. Patient identification and proposed procedure were verified by the physician and the nurse. The patient was placed in a left lateral decubitus position and the scope was passed under direct vision. Throughout the procedure, the patient's blood pressure, pulse, and oxygen saturations were monitored continuously. The colonoscopy was accomplished without difficulty. The patient tolerated the procedure well. Findings: On digital rectal examination there was normal rectal tone. There were no external hemorrhoids. The prostate was 2+, mildly firm but symmetric without nodules. The colonoscope was introduced through the anal canal to the rectum and advanced to the cecum. The ileocecal valve and appendiceal orifice were identified. The scope was advanced a short distance into the ileum which appeared grossly normal. The scope was then withdrawn into the colon. The cecum, ascending and transverse colon and mucosa were grossly normal. There was a single 3 mm polyp in the descending colon removed via cold snare polypectomy. There were scattered diverticuli throughout the descending and sigmoid colon (LEFT colon). The rectum itself was normal. Upon retroflexion within the rectum there were grade 1-2 internal hemorrhoids. The preparation was excellent throughout with [place] Preparation Score of 9. The cecal time was 12 minutes. Impression: 1. Diminutive 3 mm descending colon polyp 2. Left-sided diverticulosis 3. Grade 1-2 internal hemorrhoids Plan: I will follow-up the polyp histology and the patient will not require further screening/surveillance colonoscopy. I would encourage psyllium bulking fiber supplementation on a maintenance basis.
[2025-11-07 07:05] VITALS: BP 136/76; PULSE 80; RESP 18; TEMP 36.2; O2SAT 96
[2025-11-07] MEDS: LACTATED RINGERS 1000ML 1,000 ML 50 ML IV (07:17)
--- NOTE | 2025-11-07 07:39 | EXP.ANES.CKL ---
[facility] Disclaimer: The information contained in this section may have been updated after the patient was seen, as this information can be updated by other users. Medical History Hypertension Surgical History History of hip replacement, total Family History Other No significant family history Social History Smoking Status: Never smoker alcohol intake: current substance use type: unknown current occupational status: employed Travel in the last 8 weeks?: None [facility] Anesthesia Checklist Patient Identification Patient Identification: Arm Band and Verbal (Name & ) Structural Data Admitted From: Home Planned Operative Procedure/s: colonscopy Consent for Planned Operative Procedure(s) Verified: Yes Verified Documents: Surgical Consent and History and Physical NPO Status Verified Time NPO: 00:00 Additional verifications Anesthesia Reactions: No Previous Colonoscopy: Yes Airway Assessment Mallampati Score:: Class II C-Spine Mobility Assessed: Yes TMJ Mobility Assessed: Yes Dentition: Good Dentition Neurological Assessment Level of Consciousness: Awake, Alert and Appropriate Hx Seizures: No Numbness or tingling in extremities: No Anesthesia Plan Anesthesia Risk discussed: Yes Anesthesia Plan: Verified ASA Class: II Anesthesia Type: MAC
[2025-11-07 08:15] VITALS: BP 108/69; PULSE 89; RESP 16; TEMP 36.2; O2SAT 98
[2025-11-07 08:25] VITALS: BP 123/75; PULSE 93; RESP 17; TEMP 36.2; O2SAT 98
[2025-11-07 08:35] VITALS: BP 127/67; PULSE 81; RESP 18; TEMP 36.2; O2SAT 98
[2025-11-07 08:45] VITALS: BP 140/70; PULSE 73; RESP 18; TEMP 36.2; O2SAT 99
== END 2025-11-07 09:00 | disposition home or self-care (01) ==
PROVIDERS: PCP Family Medicine; Visit Provider Internal Medicine Gastroenterology
PROC: 0DJD8ZZ Inspection of Lower Intestinal Tract, Via Natural or Artificial Opening Endoscopic (ICD-10-PCS; CPT 45378; principal; 2025-11-07 08:00)
DX: Z12.11 Encounter for screening for malignant neoplasm of colon (principal); K63.5 Polyp of colon; K57.30 Diverticulosis of large intestine without perforation or abscess without bleeding; K64.1 Second degree hemorrhoids; Z86.0101 Personal history of adenomatous and serrated colon polyps; I10 Essential (primary) hypertension; Z79.899 Other long term (current) drug therapy
CPT/HCPCS: 45385; J2003; J2704; J7120